=== PATIENT | male | born 1970 | race Two or more races ===

== ENCOUNTER 2025-01-13 06:00 | Day surgery (SDC) | payer OTHER ==
[2025-01-06 11:38] VITALS: BP 134/85
[~2025-01-13] VITALS: Ht 157.5 cm; Wt 113.4 kg
[~2025-01-13 06:00] MED LIST: ANUSOL-HC25 MG; PLAVIX75 MG; SYNTHROID200 MCG PO; TOPROL XL25 M1 PO
[2025-01-13] MEDS ORDERED: TAMSULOSIN HCL 0.4 MG CAP PO ONE (08:15)
[2025-01-13] MEDS ORDERED: OXYCODONE HCL5 MG PO (08:29)
[2025-01-13] MEDS ORDERED: DIBUCAINE 15 GM OINT..GM. TUBE RECTAL ONE (08:30)
[2025-01-13] MEDS ORDERED: METRONIDAZOLE/SODIUM CHLORIDE 500 MG/100 ML PIGGYBACK IV ONE ×2 (08:30)
[2025-01-13] MEDS ORDERED: LIDOCAINE HCL 1%/EPINEPHRINE 20ML VIAL IJ ONE (08:30)
[2025-01-13] MEDS ORDERED: POVIDONE-IODINE 118 ML BOTT TOP ONE (08:30)
[2025-01-13] MEDS ORDERED: CEFTRIAXONE SODIUM 2,000 MG VIAL IV ONE (08:30)
[2025-01-13] MEDS ORDERED: SURGIFLO APPLICATOR 1 EACH APPL TOP ONE (08:30)
== END 2025-01-13 13:25 | disposition home or self-care (01) ==
LOC: CIR.AMB 06:00
PROVIDERS: ATTEND Surgery
DX: K60.321 Anal fistula, complex, initial (principal); K62.89 Other specified diseases of anus and rectum; Z88.6 Allergy status to analgesic agent; Z91.013 Allergy to seafood